=== PATIENT | female | born 1970 | race Caucasian/White ===

== ENCOUNTER 2018-05-11 05:27 | Day surgery (SDC) | payer BC ==
[2018-05-10 11:44] VITALS: BMI 19.3
[2018-05-11] MEDS ORDERED: LIDOCAINE HCL/PF 2% SDV 5ML VIAL ONE (07:20)
[2018-05-11] MEDS ORDERED: DEXAMETHASONE SOD PHOSPHATE 4 MG/1 ML VIAL ONE (07:20)
[2018-05-11] MEDS ORDERED: PROPOFOL 20 ML ONE (07:22)
[2018-05-11] MEDS ORDERED: ONDANSETRON 4 MG/2 ML VIAL IVPUSH PRN (07:22)
[2018-05-11] MEDS ORDERED: MIDAZOLAM HCL 2 MG/2 ML SINGLE DOSE VIAL ONE (07:22)
[2018-05-11] MEDS ORDERED: LACTATED RINGERS SOLUTION 1,000 ML IV SCH (07:30)
--- NOTE | 2018-05-11 08:13 | HP ---
Admitting History and Physical - Admission History of Present Illness: 48 yo with menorrhagia, known hx/o cervical polyp, ultrasound findings of intracavitary fibroid, for hystereoscopy, dilation and curettage, myomectomy and polypectomy. History Source: Patient Limitations to Obtaining History: No Limitations - Past Medical History Cardiovascular: No: HTN Pulmonary: No: Asthma Gastrointestinal: No: GERD ...LMP: 04/21/18 - Smoking History Smoking history: Never smoked - Alcohol/Substance Use Hx Alcohol Use: No Home Medications - Allergies Allergies/Adverse Reactions: Allergies Allergy/AdvReac Type Severity Reaction Status Date / Time cephalexin [From Keflex] Allergy Verified 05/11/18 06:58 Penicillins Allergy Verified 05/11/18 06:58 Sulfa (Sulfonamide Allergy Verified 05/11/18 06:58 Antibiotics) - Home Medications Home Medications: Ambulatory Orders NK [No Known Home Medication] 05/10/18 Family Disease History - Family Disease History Family History: Denies Review of Systems - Review of Systems Constitutional: reports: No Symptoms Cardiovascular: reports: No Symptoms Respiratory: reports: No Symptoms Gastrointestinal: reports: No Symptoms Genitourinary: reports: No Symptoms Hematology/Lymphatic: reports: No Symptoms Psychiatric: reports: No Symptoms Physical Examination Vital Signs: Vital Signs Temperature 98.5 F 05/11/18 06:59 Pulse Rate 75 05/11/18 06:59 Respiratory Rate 18 05/11/18 06:59 Blood Pressure 123/77 05/11/18 06:59 O2 Sat by Pulse Oximetry (%) 100 05/11/18 07:02 Constitutional: Yes: Well Nourished, No Distress, Calm Cardiovascular: Yes: Regular Rate and Rhythm Respiratory: Yes: Regular, CTA Bilaterally Gastrointestinal: Yes: Normal Bowel Sounds, Soft Edema: No Psychiatric: Yes: Alert, Oriented Assessment/Plan 48 yo with menorrhagia, polyp, fibroid for hysterscopy, D&C, polypectomy, myomectomy 1. Consents reviewed and signed 2. Preop labs and images reviewed 3. Will proceed to OR
[2018-05-11] MEDS ORDERED: ACETAMINOPHEN 325 MG TABLET (FP) PO PRN (08:14)
[2018-05-11] MEDS ORDERED: IBUPROFEN 400 MG TABLET (FP) PO PRN (08:14)
[2018-05-11] MEDS ORDERED: oxyCODONE HCL 5 MG TABLET PO PRN (08:14)
[2018-05-11] MEDS ORDERED: KETOROLAC TROMETHAMINE 30 MG/1 ML VIAL ONE (08:38)
--- NOTE | 2018-05-11 09:13 | OP ---
Operative Note - Note: Operative Date: 05/11/18 Pre-Operative Diagnosis: menorrhagia, endocervical polyp, fibroid Operation: hysteroscopic myomectomy, poypectomy, D&C Findings: large posterior fibroid vs septum; endometrial and endocervical polyp, bilateral ostia visualized Post-Operative Diagnosis: Same as Pre-op Surgeon: Sanjuana Acharya Anesthesiologist/LACE MACHINE OPERATOR: Miguel Godoy Anesthesia: General Estimated Blood Loss (mls): 5 Drains & Tubes with Location: 250 fluid deficit Fluid Volume Replaced (mls): 600
[2018-05-11 09:53] VITALS: TEMP 98.2
[2018-05-11] MEDS ORDERED: ALBUTEROL SO4 0.083% IH SOL 2.5 MG/3 ML VIAL.NEB. NEB ONE ×2 (10:56→11:06)
[2018-05-11 12:03] VITALS: BP 111/59; PULSE 92
--- NOTE | 2018-05-11 13:57 | OP ---
DATE OF OPERATION: 05/11/2018 ATTENDING PHYSICIAN RESPONSIBLE TO SIGN REPORT: Sanjuana Acharya MD PREOPERATIVE DIAGNOSIS: Menorrhagia, endometrial polyp, fibroid uterus. POSTOPERATIVE DIAGNOSIS: Menorrhagia, endometrial polyp, fibroid uterus. SURGEON: Sanjuana Acharya MD ANESTHESIOLOGIST: Juan Urban MD [employer] DEVELOPER: Ivon Poole CRNA INDICATIONS: Patient is a 48-year-old with history of menorrhagia, endocervical polyp, ultrasound findings of fibroids and intracavitary fibroids, desiring surgical management. She was counseled regarding risks, benefits, alternatives, and complications of procedure including infection, bleeding, damage to surrounding organs, uterine perforation. She expressed understanding and was brought to the operating room. DESCRIPTION OF PROCEDURE: When anesthesia was found to be adequate, patient was prepped and draped in a normal sterile fashion, placed in dorsal lithotomy position using Dheeraj stirrups. A weighted speculum was placed in the patients vagina. The anterior lip of the cervix was grasped using an Allis clamp. The cervical polyp was noted and removed using polyp forceps and sent to Pathology. The 6-mm hysteroscope was placed, and direct visualization of endometrial cavity was noted. An indentation in the fundal portion of the region was noted. It could not be identified to be a fibroid versus a septum. Resection of an endometrial polyp was performed using Symphion resection, and was removed, and gentle sharp curetting was performed. All instruments were removed from the patients vagina. Patient tolerated the procedure well. Estimated blood loss was 5 mL. Fluid deficit was 250. Patient was awoken. IV fluids 600 mL. Patient was awoken from anesthesia, brought to the recovery room in stable condition. Rey [id number]
--- NOTE | 2018-05-14 17:29 | PATH ---
Surgical Pathology Report Patient Name: MARILEE CHANG [facility]. Rec. #: [id number] /Age/Gender: 1970 (Age: 48) / F Account: [id number] Location: [facility] [place] [facility] Taken: 05/11/2018 Received: 05/11/2018 Reported: 05/14/2018 Physicians: Sanjuana Acharya Specimen(s) Received A: CERVICAL POLYP B: ENDOMETRIAL CURETTINGS Clinical History Polyp of corpus uteri, fibroids, menorrhagia Final Diagnosis A. CERVICAL POLYP, DILATION AND CURETTAGE: FRAGMENTS OF ENDOCERVICAL POLYP, ENDOCERVIX WITH MICROGLANDULAR HYPERPLASIA AND FOCAL ACUTE INFLAMMATION. B. ENDOMETRIAL CURETTINGS, DILATION AND CURETTAGE: FRAGMENTS OF ENDOMETRIAL AND ENDOCERVICAL POLYP, SECRETORY ENDOMETRIUM, AND ENDOCERVIX WITH MICROGLANDULAR HYPERPLASIA. Electronically Signed Kathleen Quiroz M.D. Gross Description A. Received in formalin labeled "cervical polyp, is a 1.4 x 1.2 x 0.3 cm pink-cjea, polypoid portion of soft tissue admixed with blood tinged mucus. The specimen is submitted in toto in one cassette. B. Received in formalin labeled "endometrial curettings," is a 4.4 x 2.5 x 0.3 cm aggregate of ceja soft tissue fragments admixed with blood clot. The formalin is filtered and the specimen is entirely submitted 2 cassettes. /05/11/201805/11/2018
== END 2018-05-11 12:00 | disposition home or self-care (01) ==
LOC: JASU-SURG 05:27
PROVIDERS: ATTEND Obstetrics & Gynecology
PROC: 0UB98ZZ Excision of Uterus, Via Natural or Artificial Opening Endoscopic (ICD-10-PCS; principal; 2018-05-11 08:00)
PROC: 0UDB8ZX Extraction of Endometrium, Via Natural or Artificial Opening Endoscopic, Diagnostic (ICD-10-PCS; 2018-05-11 08:00)
DX: N84.0 Polyp of corpus uteri (principal); N92.0 Excessive and frequent menstruation with regular cycle
CPT/HCPCS: 36415; 84703; 86850; 86900; 86901; 88305-TC; 94760

== ENCOUNTER 2021-03-28 08:56 | Emergency (ER) | payer BC ==
[2021-03-28 09:04] VITALS: TEMP 98; BMI 20.9
[2021-03-28] MEDS ORDERED: ONDANSETRON 4 MG/2 ML VIAL IVPUSH ONE (09:18)
[2021-03-28] MEDS ORDERED: morphine CARPU-JECT 2 MG/1 ML DISP.SYRIN IVPUSH ONE (09:18)
[2021-03-28] MEDS ORDERED: LACTATED RINGERS SOLUTION 1000 ML INFUS.BAG IV ONE (09:19)
[2021-03-28] MEDS ORDERED: morphine SULFATE 4 MG/ML VIAL ONE (09:19)
[2021-03-28] MEDS ORDERED: ONDANSETRON 4 MG/2 ML VIAL ONE (09:21)
[2021-03-28] MEDS ORDERED: KETOROLAC TROMETHAMINE 30 MG/1 ML VIAL IVPUSH ONE (09:31)
[2021-03-28] MEDS ORDERED: KETOROLAC TROMETHAMINE 30 MG/1 ML VIAL ONE ×2 (09:32→09:37)
[2021-03-28 09:51] LABS: BASO % 0.7 % (0-2.0); EOS % 5.5 % (0-4.5); HEMATOCRIT 34.2 % (32.4-45.2); HEMOGLOBIN 11.7 GM/dL (10.7-15.3); LYMPH % 21.2 % (8-40); MCH 29.9 pg (25.7-33.7); MCHC 34.2 g/dl (32.0-36.0); MEAN CELL VOLUME 87.5 fl (80-96); MEAN PLT VOLUME 8.3 fl (7.5-11.1); MONO % 7.1 % (3.8-10.2); NEUT % 65.5 % (42.8-82.8); PLATELET COUNT 338 10^3/uL (134-434); RDW 13.3 % (11.6-15.6); WHITE BLOOD COUNT 5.4 K/mm3 (4.0-10.0)
[2021-03-28 10:02] LABS: PH,URINE >= 9.0 (5.0-8.0); URINE APPEARANCE TURBID; URINE BILIRUBIN NEGATIVE (NEGATIVE); URINE COLOR YELLOW; URINE GLUCOSE (UA) NEGATIVE (NEGATIVE); URINE KETONE NEGATIVE (NEGATIVE); URINE LEUK ESTERASE NEGATIVE (NEGATIVE); URINE NITRITE NEGATIVE (NEGATIVE); URINE PROTEIN NEGATIVE (NEGATIVE); URINE UROBILINOGEN 0.2 mg/dL (0.2-1.0)
[2021-03-28 10:05] LABS: HCG,QUALITATIVE URINE Negative
[2021-03-28 10:15] LABS: CALCIUM 9.2 mg/dL (8.5-10.1)
[2021-03-28 10:16] LABS: BLOOD UREA NITROGEN 11.4 mg/dL (7-18)
[2021-03-28 10:19] LABS: CREATININE 0.6 mg/dL (0.55-1.3)
[2021-03-28 10:20] LABS: BILIRUBIN,TOTAL 0.5 mg/dL (0.2-1); TOT PROT 7.2 g/dl (6.4-8.2)
[2021-03-28] MEDS ORDERED: HYDROmorphone HCL CARPU-JECT 2 MG/1 ML DISP.SYRIN IVPUSH ONE (10:20)
[2021-03-28] MEDS ORDERED: HYDROmorphone HCl 2 MG/ML VIAL ONE (10:21)
[2021-03-28 14:43] VITALS: BP 138/79; PULSE 89
== END 2021-03-28 15:23 | disposition home or self-care (01) ==
LOC: JER 08:56
PROC: 3E033GC Introduction of Other Therapeutic Substance into Peripheral Vein, Percutaneous Approach (ICD-10-PCS; principal; 2021-03-28)
DX: R10.9 Unspecified abdominal pain (principal)
CPT/HCPCS: 36415; 74176-TC; 76775-TC; 76830-TC; 80053; 81003; 84703; 85025; 87086; 99285-25